=== PATIENT | female | born 1975 | race Caucasian/White ===

== ENCOUNTER 2018-11-20 14:42 | Inpatient (IN) | payer MEDICAID ==
[~2018-11-20] VITALS: Ht 162.6 cm; Wt 64.7 kg
--- NOTE | 2018-11-20 15:24 | NUR ---
ROOM SECURED, PT DRESSED IN GOWN-BELONGINGS TO LOCKER. URINE COLLECTED/SENT TO LAB. SITTER AT [facility]WAY FOR CLOSE OBS.
[2018-11-20 15:32] LABS: BASOPHILS % (AUTO) 1 % (0-1); EOSINOPHILS # (AUTO) 0.02 x10^3/uL (0-0.4); EOSINOPHILS % (AUTO) 0 % (1-7); LYMPHOCYTES # (AUTO) 1.54 x10^3/uL (1-3.4); LYMPHOCYTES % (AUTO) 19 % (22-44); MD NO; MEAN CORPUSCULAR HEMOGLOBIN 30.3 pg (27.0-34.8); MEAN CORPUSCULAR HGB CONC 33.7 g/dL (32.4-35.8); MEAN CORPUSCULAR VOLUME 89.9 fL (80-100); MEAN PLATELET VOLUME 8.2 fL (7.4-10.4); MONOCYTES % (AUTO) 4 % (2-9); NEUTROPHILS # (AUTO) 6.01 x10^3/uL (1.8-6.8); NEUTROPHILS % (AUTO) 76 % (42-75); PLATELET COUNT 304 x10^3/uL (130-400); RED BLOOD COUNT 4.77 x10^6/uL (3.82-5.3); RED CELL DISTRIBUTION WIDTH 14.3 % (9.6-15.2)
[2018-11-20 15:35] LABS: HCG UR SG 1.024 (1.003-1.030)
[2018-11-20 15:44] LABS: ANION GAP 10 mmol/L (5-15); CALCIUM 9.1 mg/dL (8.5-10.1); CHLORIDE 105 mmol/L (98-107); CREATININE 1.12 mg/dL (0.55-1.02)
[2018-11-20 15:46] LABS: AMPHETAMINE SCREEN, URINE Negative (Negative); BARBITURATE SCREEN, URINE Negative (Negative); BENZODIAZEPINE SCREEN, URINE Negative (Negative); CANNABINOID SCREEN, URINE Negative (Negative); COCAINE SCREEN, URINE Negative (Negative); METHADONE SCREEN, URINE Negative (Negative); OPIATE SCREEN, URINE Negative (Negative)
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
[2018-11-20 15:48] LABS: ACETAMINOPHEN < 2 mcg/mL (10-30); SALICYLATE LEVEL < 1.7 mg/dL (2.8-20.0)
[2018-11-20] MEDS ORDERED: FLUO40CA9 PO (15:59)
[2018-11-20] MEDS ORDERED: BUPR200T2 PO (15:59)
--- NOTE | 2018-11-20 16:24 | NUR ---
PT TO BE ADMITTED BY [facility], AWAITING BED ASSIGNEMENT AND ADMITTING MD.
--- NOTE | 2018-11-20 16:56 | NUR ---
REPORT TO INDIGO VILLANUEVA. PT READY FOR TRANSPORT. REQUEST TO [facility] FOR ATIVAN PRN ORDER Q6 HOURS.
[2018-11-20] MEDS ORDERED: TRAZODONE 50MG TABLET PO PRN (17:00)
[2018-11-20] MEDS ORDERED: ZIPRASIDONE 20 MG INJ IM PRN (17:00)
[2018-11-20] MEDS ORDERED: ACETAMINOPHEN 325 MG TABLET PO PRN (17:00)
[2018-11-20] MEDS ORDERED: ONDANSETRON ODT 4 MG PO PRN (17:00)
[2018-11-20] MEDS ORDERED: CYCLOBENZAPRINE 10 MG TABLET PO PRN (17:00)
[2018-11-20] MEDS ORDERED: DOCUSATE 100 MG CAPSULE PO PRN (17:00)
[2018-11-20] MEDS ORDERED: QUETIAPINE 25MG TABLET PO PRN (17:00)
[2018-11-20] MEDS ORDERED: ASA/APAP/ CAFFEINE TABLET PO PRN (17:00)
[2018-11-20] MEDS ORDERED: LORazepam 1MG TABLET PO PRN (17:00)
[2018-11-20] MEDS ORDERED: BENZTROPINE 1 MG TABLET PO PRN (17:00)
[2018-11-20] MEDS ORDERED: BENZTROPINE 1 MG/ML, 2 ML IM PRN (17:00)
--- NOTE | 2018-11-20 17:04 | NUR ---
Received SBAR report from KAY Daily. Pt will be going to room [id number]
[2018-11-20 17:23] VITALS: BP 97/65
[2018-11-20 20:00] VITALS: BP 106/71
[2018-11-21] MEDS ORDERED: TRAZ-96 PO (07:53)
[2018-11-21] MEDS ORDERED: BUPROPION SR 100 MG TABLET PO SCH (09:00)
[2018-11-21] MEDS ORDERED: FLUOXETINE HCL 20 MG CAPSULE PO SCH (09:00)
== END 2018-11-20 20:45 | DRG 885 ==
LOC: ED 16:07 → EDIP 16:30 → 2N 17:33
PROVIDERS: ADMIT Internal Medicine; ATTEND Internal Medicine
DX: F33.2 Major depressive disorder, recurrent severe without psychotic features (principal); R45.851 Suicidal ideations; Z59.0 Homelessness; M41.9 Scoliosis, unspecified
CPT/HCPCS: 36415; 80048; 80307; 80329; 81025; 82040; 85025; 99285; G0378; G0480

== ENCOUNTER 2018-11-20 17:34 | Inpatient (IN) | payer MEDICAID ==
[~2018-11-20] VITALS: Ht 162.6 cm; Wt 64.7 kg
[~2018-11-20 17:34] MED LIST: BUPR200T2 PO; FLUO40CA9 PO
[2018-11-20] MEDS ORDERED: BISACODYL 10 MG SUPP PR PRN (18:30)
[2018-11-20] MEDS ORDERED: POLYETHYLENE GLYCOL 17 GM PACKET PO PRN (18:30)
[2018-11-20] MEDS ORDERED: ACETAMINOPHEN 325 MG TABLET PO PRN (18:30)
[2018-11-20] MEDS ORDERED: ONDANSETRON ODT 4 MG PO PRN (18:30)
[2018-11-20] MEDS ORDERED: DOCUSATE 100 MG CAPSULE PO PRN (18:30)
[2018-11-20 20:56] VITALS: BP 93/63
[2018-11-21 07:35] VITALS: BP 105/70
[2018-11-21] MEDS ORDERED: TRAZ-96 PO (07:53)
[2018-11-21 09:15] LABS: HCT (SEDRATE) 41.4 % (34.6-47.8)
[2018-11-21 10:00] LABS: CHOL/HDL RATIO 3.1; LDL/HDL RATIO 1.8 (0.5-3.0); T4 (THYROXINE) 9.5 mcg/dL (4.8-13.9); THYROID STIMULATING HORMONE 2.21 mIU/L (0.358-3.740)
== END 2018-11-21 16:45 | DRG 881 ==
LOC: 3E 18:12
PROVIDERS: ADMIT Psychiatry & Neurology Psychosomatic Medicine; ATTEND Psychiatry & Neurology Psychosomatic Medicine
DX: F32.9 Major depressive disorder, single episode, unspecified (principal); R45.851 Suicidal ideations; M41.9 Scoliosis, unspecified; Z59.0 Homelessness
CPT/HCPCS: 36415; 71045; 80061; 82140; 82607; 84436; 84439; 84443; 85651; 86592; 93005; 92522-GN

== ENCOUNTER 2018-12-06 14:37 | Emergency (ER) | payer MEDICAID ==
[~2018-12-06] VITALS: Ht 167.6 cm; Wt 68.0 kg
[~2018-12-06 14:37] MED LIST changes: +TRAZ-96 PO
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
[2018-12-06 15:20] LABS: BASOPHILS # (AUTO) 0.06 x10^3/uL (0-0.1); BASOPHILS % (AUTO) 1 % (0-1); EOSINOPHILS # (AUTO) 0.01 x10^3/uL (0-0.4); EOSINOPHILS % (AUTO) 0 % (1-7); LYMPHOCYTES # (AUTO) 0.73 x10^3/uL (1-3.4); LYMPHOCYTES % (AUTO) 12 % (22-44); MD NO; MEAN CORPUSCULAR HEMOGLOBIN 29.7 pg (27.0-34.8); MEAN CORPUSCULAR VOLUME 89.9 fL (80-100); MEAN PLATELET VOLUME 8.1 fL (7.4-10.4); MONOCYTES # (AUTO) 0.25 x10^3/uL (0.2-0.8); MONOCYTES % (AUTO) 4 % (2-9); NEUTROPHILS # (AUTO) 4.95 x10^3/uL (1.8-6.8); NEUTROPHILS % (AUTO) 83 % (42-75); PLATELET COUNT 258 x10^3/uL (130-400); RED CELL DISTRIBUTION WIDTH 14.4 % (9.6-15.2)
[2018-12-06 15:29] LABS: ALBUMIN 3.4 g/dL (3.4-5.0); ANION GAP 7 mmol/L (5-15); CALCIUM 9.1 mg/dL (8.5-10.1); CHLORIDE 111 mmol/L (98-107); CREATININE 0.92 mg/dL (0.55-1.02)
[2018-12-06 15:35] LABS: ACETAMINOPHEN < 2 mcg/mL (10-30); SALICYLATE LEVEL < 1.7 mg/dL (2.8-20.0)
[2018-12-06 15:51] LABS: AMPHETAMINE SCREEN, URINE Positive (Negative); BARBITURATE SCREEN, URINE Negative (Negative); BENZODIAZEPINE SCREEN, URINE Negative (Negative); CANNABINOID SCREEN, URINE Negative (Negative); COCAINE SCREEN, URINE Negative (Negative); METHADONE SCREEN, URINE Negative (Negative); OPIATE SCREEN, URINE Negative (Negative)
[2018-12-06 18:14] VITALS: BP 118/72
== END 2018-12-06 18:16 | disposition home or self-care (01) ==
LOC: ED 16:32
DX: F33.9 Major depressive disorder, recurrent, unspecified (principal); F15.10 Other stimulant abuse, uncomplicated
CPT/HCPCS: 36415; 80048; 80307; 80329; 82040; 84703; 85025; 99284; G0480

== ENCOUNTER 2019-02-25 07:34 | Emergency (ER) | payer MEDICAID ==
[~2019-02-25] VITALS: Ht 162.6 cm; Wt 67.4 kg
[2019-02-25 07:36] VITALS: BP 107/71
== END 2019-02-25 14:25 ==
LOC: ED 08:41 → UNDOADMIN 09:10 → EDIP 09:10 → ED 14:25
DX: R45.851 Suicidal ideations (principal)
CPT/HCPCS: 36415; 80048; 80307; 82040; 83036; 83735; 84439; 84443; 85025; 99285